=== PATIENT | female | born 1955 | race Caucasian/White ===

== ENCOUNTER 2022-08-17 23:50 | Emergency (ER) | payer BC, OTHER ==
[~2022-08-17] VITALS: Ht 172.7 cm; Wt 117.9 kg
[2022-08-17 23:55] VITALS: BP 160/100
--- NOTE | 2022-08-18 00:05 | NUR ---
PT BROUGHT TO BED 4 VIA [facility]ERNAND[facility]
[2022-08-18 01:58] VITALS: BP 128/64
--- NOTE | 2022-08-18 02:04 | NUR ---
PATIENT STABLE VITALS SIGNS IN NORMAL LIMITS NOT COMPLAINING OF PAIN DC NOW TO [facility] ALL DC INSTRUCTION GAVE AND EXPLAINED WE RECOMMEND TO FOLLOW UP WITH PCP
== END 2022-08-18 02:00 | disposition home or self-care (01) ==
LOC: MED 23:50
DX: S00.03XA Contusion of scalp, initial encounter (principal); W18.30XA Fall on same level, unspecified, initial encounter; Y93.89 Activity, other specified; Y92.89 Other specified places as the place of occurrence of the external cause; Y99.8 Other external cause status
CPT/HCPCS: 70450; 99284

== ENCOUNTER 2023-08-25 15:48 | Emergency (ER) | payer OTHER ==
[~2023-08-25] VITALS: Ht 172.7 cm; Wt 117.9 kg
[2023-08-25 15:54] VITALS: BP 107/52; PULSE 78; RESP 16; TEMP 98.5; O2SAT 95
[2023-08-25] MEDS ORDERED: cephALEXin 500 MG CAP PO ONE (17:15)
[2023-08-25] MEDS ORDERED: BACITRACIN OINT 500 UNITS/GM PKT TP ONE (17:15)
[2023-08-25] MEDS ORDERED: SULFAMETH/TRIMETH DS 800/160MG 1 TAB PO ONE (17:20)
[2023-08-25] MEDS ORDERED: SULF-59 PO (17:22)
[2023-08-25] MEDS ORDERED: BACI-418 TP (17:22)
[2023-08-25 19:20] VITALS: BP 107/52; PULSE 78; RESP 16; TEMP 98.5; O2SAT 95
== END 2023-08-25 19:20 | disposition home or self-care (01) ==
LOC: MED 15:48
DX: S99.922A Unspecified injury of left foot, initial encounter (principal); E11.621 Type 2 diabetes mellitus with foot ulcer; L97.529 Non-pressure chronic ulcer of other part of left foot with unspecified severity; E11.22 Type 2 diabetes mellitus with diabetic chronic kidney disease; I13.2 Hypertensive heart and chronic kidney disease with heart failure and with stage 5 chronic kidney disease, or end stage renal disease; I50.9 Heart failure, unspecified; N18.6 End stage renal disease; Z99.2 Dependence on renal dialysis; K21.9 Gastro-esophageal reflux disease without esophagitis; Z98.890 Other specified postprocedural states; Z90.710 Acquired absence of both cervix and uterus; Z79.2 Long term (current) use of antibiotics; X58.XXXA Exposure to other specified factors, initial encounter; Y92.89 Other specified places as the place of occurrence of the external cause; Y93.89 Activity, other specified; Y99.8 Other external cause status
CPT/HCPCS: 73660; 99283

== ENCOUNTER 2024-02-03 14:56 | Inpatient (IN) | payer OTHER ==
[~2024-02-03] VITALS: Ht 170.2 cm; Wt 137.9 kg
[2024-02-03 14:56] VITALS: BP 110/49; PULSE 94; RESP 16; TEMP 98.2; O2SAT 98
[~2024-02-03 14:56] MED LIST: BACI-418 TP; SULF-59 PO
[2024-02-03] MEDS: NACL 0.9% 1,000 ML IV SCH (16:32)
[2024-02-03 16:55] LABS: ANION GAP 16.7 (8-16); CALCIUM 9.1 mg/dL (8.5-10.1); CARBON DIOXIDE 28.7 mmol/L (21-32); POTASSIUM 4.4 mmol/L (3.5-5.1)
[2024-02-03] MEDS ORDERED: cefTRIAXone 1,000 MG VIAL ONE (16:55)
[2024-02-03] MEDS ORDERED: HUM SUBQ (16:56)
[2024-02-03] MEDS ORDERED: FURO-572 PO (16:56)
[2024-02-03] MEDS ORDERED: CHOL200074 PO (16:56)
[2024-02-03] MEDS ORDERED: INSU100I7 SQ (16:56)
[2024-02-03] MEDS ORDERED: GABA300C PO (16:56)
[2024-02-03] MEDS ORDERED: METO50TA21 PO (16:56)
[2024-02-03] MEDS ORDERED: ATOR10TA PO (16:56)
[2024-02-03] MEDS ORDERED: MULT-1469 PO (16:56)
[2024-02-03] MEDS ORDERED: ASCO500T95 PO (16:56)
[2024-02-03] MEDS ORDERED: SODI650T2 PO (16:56)
[2024-02-03] MEDS ORDERED: MELA5SGL PO (16:56)
[2024-02-03] MEDS ORDERED: FOLI1TAB90 PO (16:56)
[2024-02-03] MEDS ORDERED: FLUT16SP10 NS (16:56)
[2024-02-03] MEDS ORDERED: [UNRECOGNIZED DRUG - CODE] PO (16:56)
[2024-02-03] MEDS ORDERED: CARB15DR89 OP (16:56)
[2024-02-03] MEDS ORDERED: NIFE-184 PO (16:56)
[2024-02-03] MEDS ORDERED: FERR325E14 PO (16:56)
[2024-02-03] MEDS ORDERED: SEVE800T6 PO (16:56)
[2024-02-03] MEDS ORDERED: PRO5 PO (16:56)
[2024-02-03 16:58] LABS: BASOPHILS % (AUTO) 0.2 % (0.0-2.0); EOSINOPHILS # (AUTO) 0.2 K/uL (0-0.4); HEMATOCRIT 27.1 % (36-48); HEMOGLOBIN 8.4 g/dL (12.0-16.0); LYMPHOCYTES # (AUTO) 0.9 K/uL (2.5-16.5); LYMPHOCYTES % (AUTO) 5.3 % (20.5-51.1); MEAN CORPUSCULAR HEMOGLOBIN 33 pg (27-31); MEAN CORPUSCULAR HGB CONC 31 g/dL (33-37); MEAN CORPUSCULAR VOLUME 106.5 fL (80-94); MONOCYTES % (AUTO) 6.4 % (1.7-9.3); NEUTROPHILS # (AUTO) 14.2 K/uL (1.8-7.7); NEUTROPHILS % (AUTO) 87.1 % (42.2-75.2); PLATELET COUNT (AUTO) 363 K/uL (140-450); RED BLOOD CELL COUNT(AUTO) 2.55 MIL/uL (4.20-5.40); RED CELL DISTRIBUTION WIDTH 20.2 % (11.6-13.7); WHITE BLOOD COUNT (AUTO) 16.4 K/uL (4.8-10.8)
[2024-02-03 17:04] LABS: CREATININE 7.8 mg/dL (0.6-1.3); LACTIC ACID 1.9 mmol/L (0.4-2.0)
[2024-02-03] MEDS: cefTRIAXone 1,000 MG in DEXT 5% MINI-BAG PLUS 50 ML IV ONE (17:15)
[2024-02-03 17:42] VITALS: O2SAT 96
[2024-02-03] MEDS ORDERED: VANCOMYCIN PER PHARMACY MC PRN (18:25)
[2024-02-03] MEDS ORDERED: ACETAMINOPHEN 325 MG TAB PO PRN (18:25)
[2024-02-03 21:00] VITALS: BP 104/47; PULSE 83; PULSE 93; RESP 18; TEMP 96.8; O2SAT 96
[2024-02-03] MEDS ORDERED: PIPERACILLIN/TAZOBACTAM 2.25 GM in DEXTROSE 5% 50 ML IV SCH (21:00)
[2024-02-03] MEDS: PIPERACILLIN/TAZOBACTAM 2.25 GM in DEXTROSE 5% 50 ML IV SCH (21:56)
[2024-02-03] MEDS: PIPERACILLIN/TAZOBACTAM 2.25 GM VIAL IV ONE (22:06)
[2024-02-03] MEDS: VANCOMYCIN 1,000 MG in DEXTROSE 5% 250 ML IV SCH (22:57)
[2024-02-03] MEDS: VANCOMYCIN 1,000 MG VIAL ONE (23:06)
[2024-02-03] MEDS ORDERED: DEXTROSE 50% 50 ML SYR IVP PRN (23:55)
[2024-02-04] VITALS (11 sets, daily range): BP systolic 97–126; BP diastolic 41–55; PULSE 72–88; RESP 18–20; TEMP 96.5–97.5; O2SAT 94–99
[2024-02-04] MEDS: BLOOD GLUCOSE MONITORING 1 DEV DEV FS SCH (06:27)
[2024-02-04] MEDS: INSULIN LISPRO SLIDING SCALE 100 UNITS/ML VIAL SUBQ PRN (06:31)
[2024-02-04 08:49] LABS: HEMATOCRIT 25.9 % (36-48); HEMOGLOBIN 8.2 g/dL (12.0-16.0); MEAN CORPUSCULAR HEMOGLOBIN 33 pg (27-31); MEAN CORPUSCULAR HGB CONC 32 g/dL (33-37); MEAN CORPUSCULAR VOLUME 103.4 fL (80-94); PLATELET COUNT (AUTO) 363 K/uL (140-450); RED BLOOD CELL COUNT(AUTO) 2.51 MIL/uL (4.20-5.40); RED CELL DISTRIBUTION WIDTH 20.3 % (11.6-13.7); WHITE BLOOD COUNT (AUTO) 12.7 K/uL (4.8-10.8)
[2024-02-04 09:08] LABS: INR 1.02 (0.8-1.2); PARTIAL THROMBOPLASTIN TIME 31.4 secs (22-35.6); PROTHROMBIN TIME 10.7 secs (10.8-13.4)
[2024-02-04 09:09] LABS: ALBUMIN 2.3 g/dL (3.4-5.0); ANION GAP 14.8 (8-16); CARBON DIOXIDE 29.2 mmol/L (21-32); MAGNESIUM 2.6 mg/dL (1.8-2.4); PHOSPHORUS 4.5 mg/dL (2.5-4.9); TOTAL BILIRUBIN 0.5 mg/dL (0.0-1.0); TOTAL PROTEIN, SERUM 7.6 g/dL (6.4-8.2)
[2024-02-04 09:55] LABS: BASOPHILS % (MANUAL) 0 % (0-2); EOSINOPHILS % (MANUAL) 1 % (0-4); LYMPHOCYTES % (MANUAL) 8 % (20-46); METAMYELOCYTES % 1 % (0-0); MONOCYTES % (MANUAL) 5 % (5-12); PLATELET ESTIMATE PLATELET CLUMPS SEEN; SMUDGE CELLS YES
[2024-02-04 09:56] LABS: ANISOCYTOSIS 1+; HYPOCHROMASIA 1+; SPHEROCYTES 1+; TOXIC GRANULATION 1+
[2024-02-04 10:00] LABS: CREATININE 8.7 mg/dL (0.6-1.3)
[2024-02-04] MEDS: MORPHINE SULFATE 2 MG/ML SYR IVP PRN (10:26)
[2024-02-04] MEDS: MEDS-TO-BEDS MC SCH (21:24)
[2024-02-05] VITALS: BP 99/42; PULSE 82; PULSE 85; RESP 18; TEMP 97.8; O2SAT 94
[2024-02-05 04:00] VITALS: BP 107/43; PULSE 79; PULSE 80; RESP 18; TEMP 96.8; O2SAT 96
[2024-02-05 07:08] LABS: ALBUMIN 2.2 g/dL (3.4-5.0); ANION GAP 16.3 (8-16); CALCIUM 9.2 mg/dL (8.5-10.1); CARBON DIOXIDE 28.9 mmol/L (21-32); PHOSPHORUS 4.1 mg/dL (2.5-4.9); POTASSIUM 4.2 mmol/L (3.5-5.1); TOTAL BILIRUBIN 0.5 mg/dL (0.0-1.0); TOTAL PROTEIN, SERUM 7.5 g/dL (6.4-8.2)
[2024-02-05 07:17] LABS: BASOPHILS % (AUTO) 0.4 % (0.0-2.0); EOSINOPHILS # (AUTO) 0.2 K/uL (0-0.4); EOSINOPHILS % (AUTO) 2.3 % (0.0-4.0); HEMATOCRIT 25.3 % (36-48); HEMOGLOBIN 8.1 g/dL (12.0-16.0); LYMPHOCYTES # (AUTO) 0.8 K/uL (2.5-16.5); MEAN CORPUSCULAR HEMOGLOBIN 33 pg (27-31); MEAN CORPUSCULAR HGB CONC 32 g/dL (33-37); MEAN CORPUSCULAR VOLUME 103.3 fL (80-94); MONOCYTES # (AUTO) 0.6 K/uL (0.8-1.0); MONOCYTES % (AUTO) 5.2 % (1.7-9.3); NEUTROPHILS # (AUTO) 9.3 K/uL (1.8-7.7); NEUTROPHILS % (AUTO) 85.1 % (42.2-75.2); PLATELET COUNT (AUTO) 345 K/uL (140-450); RED BLOOD CELL COUNT(AUTO) 2.45 MIL/uL (4.20-5.40); RED CELL DISTRIBUTION WIDTH 20.3 % (11.6-13.7); WHITE BLOOD COUNT (AUTO) 10.9 K/uL (4.8-10.8)
[2024-02-05 07:40] LABS: CREATININE 6.3 mg/dL (0.6-1.3)
[2024-02-05 08:03] LABS: MAGNESIUM 2.4 mg/dL (1.8-2.4)
[2024-02-05 10:00] VITALS: BP 118/54; PULSE 82; RESP 18; TEMP 97.1; O2SAT 97
[2024-02-05] MEDS: MIDODRINE 5 MG TAB PO SCH (10:13)
[2024-02-05] MEDS: VANCOMYCIN 1,000 MG in DEXTROSE 5% 250 ML IV SCH (13:14)
[2024-02-05 16:00] VITALS: BP 120/45; PULSE 78; PULSE 85; RESP 18; TEMP 97.3; O2SAT 97
[2024-02-05 20:00] VITALS: BP 97/41; PULSE 73; PULSE 81; RESP 18; RESP 20; TEMP 98.8; O2SAT 94; O2SAT 96
[2024-02-06] VITALS (8 sets, daily range): BP systolic 101–123; BP diastolic 40–52; PULSE 66–99; RESP 17–20; TEMP 97.6–98.1; O2SAT 94–96
[2024-02-06 06:48] LABS: BASOPHILS % (AUTO) 0.5 % (0.0-2.0); EOSINOPHILS # (AUTO) 0.3 K/uL (0-0.4); EOSINOPHILS % (AUTO) 2.6 % (0.0-4.0); LYMPHOCYTES # (AUTO) 0.8 K/uL (2.5-16.5); MEAN CORPUSCULAR HEMOGLOBIN 33 pg (27-31); MEAN CORPUSCULAR HGB CONC 32 g/dL (33-37); MEAN CORPUSCULAR VOLUME 102.9 fL (80-94); MONOCYTES # (AUTO) 0.6 K/uL (0.8-1.0); MONOCYTES % (AUTO) 5.8 % (1.7-9.3); NEUTROPHILS # (AUTO) 8.7 K/uL (1.8-7.7); NEUTROPHILS % (AUTO) 83.1 % (42.2-75.2); PLATELET COUNT (AUTO) 342 K/uL (140-450); RED BLOOD CELL COUNT(AUTO) 2.24 MIL/uL (4.20-5.40); RED CELL DISTRIBUTION WIDTH 20.3 % (11.6-13.7); WHITE BLOOD COUNT (AUTO) 10.4 K/uL (4.8-10.8)
[2024-02-06 07:32] LABS: ANION GAP 15.5 (8-16); CALCIUM 8.6 mg/dL (8.5-10.1); CARBON DIOXIDE 26.3 mmol/L (21-32); MAGNESIUM 2.3 mg/dL (1.8-2.4); PHOSPHORUS 5.2 mg/dL (2.5-4.9); POTASSIUM 4.8 mmol/L (3.5-5.1); TOTAL BILIRUBIN 0.5 mg/dL (0.0-1.0); TOTAL PROTEIN, SERUM 7.1 g/dL (6.4-8.2)
[2024-02-06] MEDS: LIDOCAINE 1% 500 MG/50 ML VIAL ONE (07:36)
[2024-02-06 07:37] LABS: HEMOGLOBIN 7.3 g/dL (12.0-16.0)
[2024-02-06 07:39] LABS: CREATININE 8.3 mg/dL (0.6-1.3)
[2024-02-06] MEDS: ACETAMINOPHEN 100 ML IV ONE (07:42)
[2024-02-06] MEDS: fentaNYL citrate 0.05 MG/ML VIAL ONE (07:47)
[2024-02-06] MEDS: PIPERACILLIN/TAZOBACTAM 3.375 GM VIAL IV ONE (08:30)
[2024-02-06] MEDS: BUPIVACAINE-MPF 0.25% 30 ML VIAL INJ ONE (08:30)
[2024-02-06] MEDS: PROPOFOL 200 MG/20 ML VIAL IV ONE ×4 (08:37→08:59)
[2024-02-06] MEDS: MIDODRINE 5 MG TAB ONE (12:48)
[2024-02-07 06:56] LABS: BASOPHILS # (AUTO) 0.1 K/uL (0.00-0.22); BASOPHILS % (AUTO) 0.5 % (0.0-2.0); EOSINOPHILS # (AUTO) 0.2 K/uL (0-0.4); EOSINOPHILS % (AUTO) 1.7 % (0.0-4.0); HEMATOCRIT 21.9 % (36-48); LYMPHOCYTES % (AUTO) 8.2 % (20.5-51.1); MEAN CORPUSCULAR HEMOGLOBIN 33 pg (27-31); MEAN CORPUSCULAR HGB CONC 32 g/dL (33-37); MEAN CORPUSCULAR VOLUME 102.2 fL (80-94); MONOCYTES # (AUTO) 0.7 K/uL (0.8-1.0); MONOCYTES % (AUTO) 6.2 % (1.7-9.3); NEUTROPHILS # (AUTO) 9.9 K/uL (1.8-7.7); NEUTROPHILS % (AUTO) 83.4 % (42.2-75.2); PLATELET COUNT (AUTO) 356 K/uL (140-450); RED BLOOD CELL COUNT(AUTO) 2.14 MIL/uL (4.20-5.40); RED CELL DISTRIBUTION WIDTH 20.8 % (11.6-13.7); WHITE BLOOD COUNT (AUTO) 11.9 K/uL (4.8-10.8)
[2024-02-07 07:35] LABS: ALBUMIN 2.1 g/dL (3.4-5.0); CALCIUM 9.1 mg/dL (8.5-10.1); CARBON DIOXIDE 22.7 mmol/L (21-32); MAGNESIUM 2.6 mg/dL (1.8-2.4); PHOSPHORUS 5.8 mg/dL (2.5-4.9); POTASSIUM 4.7 mmol/L (3.5-5.1); TOTAL BILIRUBIN 1.4 mg/dL (0.0-1.0); TOTAL PROTEIN, SERUM 7.2 g/dL (6.4-8.2)
[2024-02-07 08:00] VITALS: BP 109/46; PULSE 70; RESP 18; TEMP 97.4; O2SAT 99
[2024-02-07 08:39] LABS: CREATININE 10.7 mg/dL (0.6-1.3)
[2024-02-07] MEDS: EPOETIN ALFA-EPBX 10,000 UNITS/ML VIAL SUBQ SCH (09:00)
[2024-02-07 12:00] VITALS: BP 110/64; PULSE 80; RESP 14; TEMP 98; O2SAT 97
[2024-02-07] MEDS: SODIUM FERRIC GLUCONATE 125 MG in NACL 0.9% 100 ML IV SCH (12:08)
[2024-02-07 16:00] VITALS: BP 120/56; PULSE 73; RESP 18; TEMP 97.4; O2SAT 95
[2024-02-07] MEDS: HYDROcodone/APAP 5/325 MG 1 TAB TAB PO PRN (18:19)
[2024-02-07 20:00] VITALS: BP 114/50; PULSE 81; RESP 18; TEMP 97.1; O2SAT 96
[2024-02-08 07:29] LABS: EOSINOPHILS # (AUTO) 0.3 K/uL (0-0.4); EOSINOPHILS % (AUTO) 3.3 % (0.0-4.0); MEAN CORPUSCULAR HEMOGLOBIN 33 pg (27-31); MEAN CORPUSCULAR HGB CONC 32 g/dL (33-37); MONOCYTES # (AUTO) 0.6 K/uL (0.8-1.0); RED CELL DISTRIBUTION WIDTH 20.8 % (11.6-13.7)
[2024-02-08 07:55] LABS: ALBUMIN 2.1 g/dL (3.4-5.0); ANION GAP 17.4 (8-16); CALCIUM 9.3 mg/dL (8.5-10.1); CARBON DIOXIDE 26.6 mmol/L (21-32); MAGNESIUM 2.4 mg/dL (1.8-2.4); PHOSPHORUS 5.7 mg/dL (2.5-4.9); TOTAL BILIRUBIN 0.6 mg/dL (0.0-1.0); TOTAL PROTEIN, SERUM 7.4 g/dL (6.4-8.2)
[2024-02-08 08:00] VITALS: BP 111/52; PULSE 74; RESP 18; TEMP 97.6; O2SAT 92
[2024-02-08 08:16] LABS: CREATININE 7.2 mg/dL (0.6-1.3)
[2024-02-08 08:20] LABS: BASOPHILS % (AUTO) 0.4 % (0.0-2.0); HEMATOCRIT 22.9 % (36-48); HEMOGLOBIN 7.3 g/dL (12.0-16.0); LYMPHOCYTES # (AUTO) 0.9 K/uL (2.5-16.5); LYMPHOCYTES % (AUTO) 10.6 % (20.5-51.1); MEAN CORPUSCULAR VOLUME 102.6 fL (80-94); MONOCYTES % (AUTO) 6.6 % (1.7-9.3); NEUTROPHILS # (AUTO) 6.9 K/uL (1.8-7.7); NEUTROPHILS % (AUTO) 79.1 % (42.2-75.2); PLATELET COUNT (AUTO) 352 K/uL (140-450); RED BLOOD CELL COUNT(AUTO) 2.23 MIL/uL (4.20-5.40); WHITE BLOOD COUNT (AUTO) 8.7 K/uL (4.8-10.8)
[2024-02-08] MEDS ORDERED: AMOX-999 PO (13:52)
[2024-02-08 15:15] VITALS: O2SAT 96
[2024-02-08 16:00] VITALS: BP 139/55; PULSE 68; RESP 18; TEMP 97.7; O2SAT 93
== END 2024-02-08 18:50 | DRG 853 ==
LOC: MED 14:56 → MTU 18:25
PROVIDERS: ADMIT Internal Medicine; ATTEND Internal Medicine
PROC: 0Y6N0Z9 Detachment at Left Foot, Partial 1st Ray, Open Approach (ICD-10-PCS; principal; 2024-02-04)
PROC: 5A1D70Z Performance of Urinary Filtration, Intermittent, Less than 6 Hours Per Day (ICD-10-PCS; 2024-02-04)
PROC: 0Y6N0ZB Detachment at Left Foot, Partial 2nd Ray, Open Approach (ICD-10-PCS; 2024-02-04)
PROC: 0Y6N0ZC Detachment at Left Foot, Partial 3rd Ray, Open Approach (ICD-10-PCS; 2024-02-04)
PROC: 0Y6N0ZD Detachment at Left Foot, Partial 4th Ray, Open Approach (ICD-10-PCS; 2024-02-04)
PROC: 0Y6N0ZF Detachment at Left Foot, Partial 5th Ray, Open Approach (ICD-10-PCS; 2024-02-04)
PROC: 0JBR0ZZ Excision of Left Foot Subcutaneous Tissue and Fascia, Open Approach (ICD-10-PCS; 2024-02-04)
PROC: 5A1D70Z Performance of Urinary Filtration, Intermittent, Less than 6 Hours Per Day (ICD-10-PCS; 2024-02-07)
DX: A41.9 Sepsis, unspecified organism (principal); A48.0 Gas gangrene; N18.6 End stage renal disease; E11.52 Type 2 diabetes mellitus with diabetic peripheral angiopathy with gangrene; I12.0 Hypertensive chronic kidney disease with stage 5 chronic kidney disease or end stage renal disease; L03.116 Cellulitis of left lower limb; M86.8X7 Other osteomyelitis, ankle and foot; E87.1 Hypo-osmolality and hyponatremia; E11.621 Type 2 diabetes mellitus with foot ulcer; E11.69 Type 2 diabetes mellitus with other specified complication; K21.9 Gastro-esophageal reflux disease without esophagitis; L97.529 Non-pressure chronic ulcer of other part of left foot with unspecified severity; E66.01 Morbid (severe) obesity due to excess calories; D53.9 Nutritional anemia, unspecified; E83.39 Other disorders of phosphorus metabolism; E11.22 Type 2 diabetes mellitus with diabetic chronic kidney disease; Z99.2 Dependence on renal dialysis; Z90.710 Acquired absence of both cervix and uterus; Z90.49 Acquired absence of other specified parts of digestive tract; Z89.432 Acquired absence of left foot; Z79.899 Other long term (current) drug therapy
CPT/HCPCS: 36415; 71045; 73630; 80048; 80053; 80202; 82728; 82948; 83540; 83605; 83735; 83880; 84100; 84484; 85025; 85610; 85730; 87040; 87070; 87075; 87081; 87186; 87205; 88307; 88311; 90935; 93005; 93925; 96374; 97163-GP; 97530; 99285; J0696; J1644; J1815; J2001; J2270; J2543; J2704; J2916; J3010; J3370; J3490; J7030; J7060; Q0092; Q5106

== ENCOUNTER 2024-06-17 05:12 | Emergency (ER) | payer OTHER ==
[~2024-06-17] VITALS: Ht 172.7 cm; Wt 140.6 kg
[~2024-06-17 05:12] MED LIST changes: +AMOX-999 PO; +ASCO500T95 PO; +ATOR10TA PO; +CARB15DR89 OP; +CHOL200074 PO; +FERR325E14 PO; +FLUT16SP10 NS; +FOLI1TAB90 PO; +FURO-572 PO; +GABA300C PO; +HUM SUBQ; +INSU100I7 SQ; +MELA5SGL PO; +METO50TA21 PO; +MULT-1469 PO; +NIFE-184 PO; +PRO5 PO; +SEVE800T6 PO; +SODI650T2 PO; +[UNRECOGNIZED DRUG - CODE] PO
[2024-06-17 05:13] VITALS: BP 178/61; PULSE 67; RESP 18; TEMP 98.2; O2SAT 99
--- NOTE | 2024-06-17 05:13 | NUR ---
68 Y/O F FROM [facility] S/P UNWITNESSED FALL. PT WAS SITTING ON W/C AND SLIDE OFF W/C. INIATIALLY NO PAIN BUT NOW RIGHT KNEE AND RIGHT HIP PAIN. NO LOC. DENIES HITTING HEAD. SUSTAINED LEFT ARM SKIN TEAR DURING FALL. PMHX DM, HTN, ESRD DIALYSIS (T//TUE) NKA
--- NOTE | 2024-06-17 05:26 | NUR ---
OUT TO XRAY
--- NOTE | 2024-06-17 05:50 | NUR ---
BACK FROM XRAY
[2024-06-17] MEDS: MORPHINE SULFATE 4 MG/ML SYR IM ONE (06:24)
--- NOTE | 2024-06-17 07:19 | NUR ---
Pt report given to Irena MORA. Transfer of care at this time.
--- NOTE | 2024-06-17 07:30 | NUR ---
REPORT RECIEVED FROM ABBY RIZO. PATIET SEEN IN BED STABLE AWAKE AND RESPONSIVE.
--- NOTE | 2024-06-17 12:06 | NUR ---
PT GIVEN LUNCH TRAY, PT TOLERATES SITTING UP TO EAT.
--- NOTE | 2024-06-17 15:12 | NUR ---
TRANSPORT AT BEDSIDE
--- NOTE | 2024-06-17 15:13 | NUR ---
SPOKE WITH LINDSEY FROM [facility] TO NOTIFY FACILITY PT IS IN ROUTE BACK TO FACILITY
--- NOTE | 2024-06-17 15:15 | NUR ---
Patient discharged with v/s stable. Written and verbal after care instructions given and explained. Patient verbalized understanding. Ambulance Transport with to senior living. All questions addressed prior to discharge. Advised to follow up with PMD.
[2024-06-17 15:16] VITALS: BP 141/62; PULSE 70; RESP 16; TEMP 98; O2SAT 97
== END 2024-06-17 15:15 | disposition home or self-care (01) ==
LOC: MED 05:12
DX: M25.571 Pain in right ankle and joints of right foot (principal); M25.561 Pain in right knee; M25.551 Pain in right hip; J45.909 Unspecified asthma, uncomplicated; E11.9 Type 2 diabetes mellitus without complications; K21.9 Gastro-esophageal reflux disease without esophagitis; I10 Essential (primary) hypertension; Z87.448 Personal history of other diseases of urinary system; Z90.49 Acquired absence of other specified parts of digestive tract; Z90.710 Acquired absence of both cervix and uterus; Z98.890 Other specified postprocedural states; Z79.899 Other long term (current) drug therapy; W05.0XXA Fall from non-moving wheelchair, initial encounter; Y93.89 Activity, other specified; Y92.89 Other specified places as the place of occurrence of the external cause; Y99.8 Other external cause status
CPT/HCPCS: 72170; 73502; 73562; 73610; 96372; 99284; J2270; Q0092